=== PATIENT | female | born 1985 | race African-American/Black ===

== ENCOUNTER 2020-02-26 20:58 | Inpatient (IN) ==
[2020-02-26] MEDS ORDERED: BUTORPHANOL 2 MG/ML VIAL IV PRN (21:33)
[2020-02-26 21:38] LABS: Basophils % 0.2 % (0.0-0.8); Eosinophils # 0.1 10*3/uL (0.0-0.87); Eosinophils % 1.3 % (0.00-10.9); Hematocrit 29.4 VOL% (35.7-47.0); Immature Granulocytes % 0.5 %; Immature Granulocytes Absolute 0.04 #; Lymphocytes # 1.7 10*3/uL (1.4-4.0); Lymphocytes % 20.6 % (21.3-54.2); Mean Corpuscular HGB Conc 30.6 GM/DL (32-36); Mean Corpuscular Volume 77.2 FL (87-102); Monocytes % 10.8 % (1.7-12.7); Neutrophils % 66.6 % (38.7-73.9); Platelet Count 211 T/CUMM (130-400); Red Blood Count 3.81 MC/CUMM (3.8-5.5); Red Cell Distribution Width 16.7 % (9.3-17.3); White Blood Count 8.3 T/CUMM (4-12)
[2020-02-26] MEDS: LABETALOL 100 MG TABLET PO SCH (21:46)
[2020-02-26] MEDS: LACTATED RINGERS 1,000 ML IV SCH (21:47)
[2020-02-26 21:56] LABS: Albumin 2.9 G/DL (3.4-5.0); Bilirubin,Total 0.9 MG/DL (0.2-1.0); Calcium 8.5 MG/DL (8.5-10.1)
[2020-02-26 22:09] LABS: PT Patient Result 10.5 SECS (9.8-11.9); Partial Thromboplastin Time 26.8 SECS (23.9-33.8)
[2020-02-26] MEDS ORDERED: ACETAMINOPHEN 500 MG TABLET PO PRN (22:32)
[2020-02-27] MEDS: LABETALOL 100 MG TABLET PO SCH ×3 (05:30→20:57)
[2020-02-27] MEDS: LACTATED RINGERS 1,000 ML IV SCH ×2 (05:49→10:13)
[2020-02-27] MEDS: ONDANSETRON 4 MG/2 ML VIAL IV PRN ×2 (08:33→13:28)
[2020-02-27] MEDS: MEPERIDINE 50 MG/1 ML VIAL IV PRN ×2 (08:35→11:55)
[2020-02-27] MEDS ORDERED: LIDOCAINE 1% 50 ML VIAL ONE (09:24)
[2020-02-27] MEDS ORDERED: miSOPROStoL 200 MCG TABLET ONE (09:25)
[2020-02-27] MEDS ORDERED: METHYLERGONOVINE 0.2 MG/1 ML AMP ONE (09:25)
[2020-02-27] MEDS ORDERED: CARBOPROST TROMETHAMINE 250 MCG/ML AMP IM ONE (09:25)
[2020-02-27] MEDS ORDERED: OXYTOCIN/LR 20 UNIT/1,000 ML BAG IV ONE ×2 (12:25→14:15)
[2020-02-27] MEDS ORDERED: OXYTOCIN/LR 20 UNIT/1,000 ML BAG IV SCH (12:30)
[2020-02-27] MEDS ORDERED: DIPH/TET/ACEL PERT BOOSTER VACCINE 0.5 ML VIAL IM ONE (14:15)
[2020-02-27] MEDS ORDERED: BENZOCAINE 20%/MENTHOL 0.5% SPRAY 56 GM CAN TOP PRN (14:15)
[2020-02-27] MEDS ORDERED: LANOLIN 50% CREAM 0.3 OZ TUBE TOP PRN (14:15)
[2020-02-27] MEDS ORDERED: MEASLES/MUMPS/RUBELLA VACCINE 0.5 ML VIAL SUBCUT ONE (14:15)
[2020-02-27] MEDS ORDERED: RHO(D) IMMUNE GLOBULIN 300 MCG SYRINGE IM ONE (14:15)
[2020-02-27] MEDS ORDERED: ONDANSETRON 4 MG/2 ML VIAL IV PRN (14:15)
[2020-02-27] MEDS ORDERED: HYDROCORTISONE 2.5% RECTAL CREAM 30 GM TUBE TOP PRN (14:15)
[2020-02-27] MEDS ORDERED: BISACODYL 10 MG SUPP RECTAL PRN (14:15)
[2020-02-27] MEDS ORDERED: oxyCODONE/ACETAMINOPHEN 5-325 MG TABLET PO PRN ×2 (14:15)
[2020-02-27] MEDS ORDERED: ACETAMINOPHEN 325 MG TABLET PO PRN (14:15)
[2020-02-27] MEDS ORDERED: WITCH HAZEL PADS 100/JAR TOP PRN (14:15)
[2020-02-27 14:30] LABS: Apearance,Urine CLEAR (Clear); Bilirubin,Urine Negative (Negative); Blood, Urine Negative (Negative); Glucose,Urine (UA) Negative (Negative); Ketones,Urine 5 mg/dL (Negative); Mucus,Urine Occasional /LPF (Occasional); Nitrite,Urine Negative (Negative); Protein,Urine 30 MG/DL; RBC,Urine 1 /HPF (0-4); Squamous Epithelial Cell,Urine Occasional /HPF (0-10); Urine Color Yellow (Yellow); Urine Specific Gravity 1.012 (1.001-1.035); Urine Urobilinogen < 2.0 EU/DL (0.2-1.0); WBC,Urine <1 /HPF (0-6)
[2020-02-27 15:10] LABS: Cord Venous Blood HCO3 22.3 MMOL/L; Cord Venous Blood PCO2 57.1 MMHG; Cord Venous Blood PO2 16.5 MMHG
[2020-02-27] MEDS: IBUPROFEN 800 MG TABLET PO PRN ×2 (17:57→23:49)
[2020-02-27] MEDS: DOCUSATE SODIUM 100 MG CAPSULE PO SCH (20:57)
[2020-02-28] MEDS: LABETALOL 100 MG TABLET PO SCH ×3 (06:05→19:59)
[2020-02-28 07:04] LABS: Basophils % 0.3 % (0.0-0.8); Eosinophils # 0.1 10*3/uL (0.0-0.87); Eosinophils % 0.8 % (0.00-10.9); Hematocrit 28.9 VOL% (35.7-47.0); Hemoglobin 9.2 GM/DL (12.0-16.0); Immature Granulocytes % 0.3 %; Immature Granulocytes Absolute 0.03 #; Lymphocytes # 1.7 10*3/uL (1.4-4.0); Lymphocytes % 16.3 % (21.3-54.2); Mean Corpuscular HGB Conc 31.8 GM/DL (32-36); Mean Corpuscular Volume 75.3 FL (87-102); Mean Platelet Volume 12.5 FL (9.6-12.0); Monocytes % 9.4 % (1.7-12.7); Neutrophils % 72.9 % (38.7-73.9); Platelet Count 191 T/CUMM (130-400); Red Blood Count 3.84 MC/CUMM (3.8-5.5); Red Cell Distribution Width 16.7 % (9.3-17.3); White Blood Count 10.5 T/CUMM (4-12)
[2020-02-28] MEDS: DOCUSATE SODIUM 100 MG CAPSULE PO SCH ×2 (09:15→19:59)
[2020-02-29] MEDS: LABETALOL 100 MG TABLET PO SCH (06:00)
[2020-02-29 07:31] VITALS: BP 149/93
[2020-02-29] MEDS: DOCUSATE SODIUM 100 MG CAPSULE PO SCH (09:10)
[2020-02-29] MEDS: IBUPROFEN 800 MG TABLET PO PRN (09:10)
== END 2020-02-29 11:50 | disposition home or self-care (01) | DRG 560 ==
LOC: N.LDOUT 20:58 → N.LD 21:00 → N.OB 02-27 17:55
PROVIDERS: ADMIT Specialist; ATTEND Specialist